=== PATIENT | female | born 1975 | race Caucasian/White ===

== ENCOUNTER 2016-12-12 19:59 | Emergency (ER) | payer MEDICAID ==
--- NOTE | 2016-12-12 20:41 | ED Physician Chart ---
Chief Complaint/HPI - Patient Information Date Seen:: 12/12/16 Time Seen:: 20:30 Chief Complaint:: dysuria History of Present Illness:: 4 days ago patient developed dysuria and urinary frequency every 10-15 minutes. Patient denies back pain or fever. Patient has been taking Azo over-the- counter with some improvement in the symptoms. Allergies:: Allergies Allergy/AdvReac Type Severity Reaction Status Date / Time No Known Allergies Allergy Verified 12/12/16 20:32 Vitals:: Vital Signs - 8 hr 12/12/16 20:10 Temp 97.5 F HR 70 RR 18 BP 118/80 O2 Sat % 97 Historian:: Patient Review:: Nurse's Note Reviewed Review of Systems - Review of Systems General/Constitutional: No fever, No chills Skin: No skin lesions Head: No headache Eyes: No loss of vision ENT: No earache Neck: No neck pain Cardio Vascular: No chest pain Pulmonary: No SOB GI: No nausea, No vomiting G/U: Dysuria, Frequency Endocrine: No polyuria, No polydipsia Psychiatric: No prior psych history Hematopoietic: No bruising, No lymphadenopathy Allergic/Immuno: No urticaria Neurological: No syncope Past Medical History - Past Medical History Past Medical History: No significant medical hx Family History: None Social History: Non Smoker Surgical History: None Psychiatricy History: None Medication: Reviewed Family Medical History - Family Member Mother History Unknown: Yes Physical Exam - Physical Examination General/Constitutional: Well-developed, well-nourished, Alert, No distress Head: Atraumatic Eyes: Lids, conjuctiva normal, PERRL Skin: Nl inspection, No rash, No skin lesions, No ecchymosis ENMT: External ears, nose nl, TM canals nl, Nasal exam nl, Lips, teeth, gums nl , Oropharynx nl, Tonsils nl Neck: No nuchal rigidity Respiratory: Nl effort/Exclusion, Clear to Auscultation Cardio Vascular: RRR GI: No tenderness/rebounding/guarding : No CVA tenderness Neuro/Psych: Alert/oriented, No focal deficits Misc: Normal back ED Septic Shock - . Is Septic Shock (SBP<90, OR Lactate>4 mmol\L) present?: No - <6hrs of presentation: Vital Signs: Vital Signs - 8 hr 12/12/16 20:10 Temp 97.5 F HR 70 RR 18 BP 118/80 O2 Sat % 97 Reassessment (Disposition) - Reassessment Reassessment Condition:: Unchanged - Diagnosis Diagnosis:: Cystitis - Aftercare/Follow up Instructions Aftercare/Follow-Up Instructions:: Refer to Discharge Instructions Medication Prescribed:: Macrobid 100 mg BID for 0ne week - Patient Disposition Discharge/Transfer:: Home Condition at Disposition:: Stable, Unchanged ED Discharge Plan - Patient Disposition Instructions: Urinary Tract Infection, [id number] Additional Instructions: FILL YOUR PRESCRIPTION AND TAKE IT DIRECTED. FOLLOW UP AT YOUR LOCAL MEDICAL CLINIC IF NOT FEELING ANY BETTER.
[2016-12-12 20:57] LABS: URINE BILIRUBIN SMALL (NEGATIVE); URINE BLOOD MODERATE (NEGATIVE); URINE COLOR YELLOW; URINE GLUCOSE (UA) NEGATIVE (NEGATIVE); URINE KETONE NEGATIVE (NEGATIVE); URINE PH 5.5; URINE PROTEIN 30 mg/dL (NEGATIVE); URINE UROBILINOGEN 0.2 E.U./dL (0.2 - 1.0)
[2016-12-12 21:00] LABS: URINE BACTERIA 1+ /hpf (NONE SEEN); URINE CALCIUM OXALATE CRYSTALS FEW /hpf; URINE EPITHELIAL CELLS MODERATE /lpf (FEW); URINE WBC 25-50 /hpf (0-5)
== END 2016-12-12 21:50 | disposition home or self-care (01) ==
LOC: ER 19:59
DX: N30.90 Cystitis, unspecified without hematuria (principal)
CPT/HCPCS: 81001-TC; 81025-TC; 87086-90; Z7502

== ENCOUNTER 2016-12-19 17:09 | Emergency (ER) | payer MEDICAID ==
--- NOTE | 2016-12-19 18:02 | ED Physician Chart ---
Chief Complaint/HPI - Patient Information Date Seen:: 12/19/16 Time Seen:: 17:45 Chief Complaint:: vaginal spotting History of Present Illness:: patient seed here one week ago; cystitis diagnosed and prescribed Macrobid. 5 days ago started vaginal spotting which she has not had before. Stopped the Macrobid because she thought it might be causing the spotting. Allergies:: Allergies Allergy/AdvReac Type Severity Reaction Status Date / Time No Known Allergies Allergy Verified 12/19/16 17:29 Vitals:: Vital Signs - 8 hr 12/19/16 17:10 Temp 97.7 F HR 79 RR 16 BP 135/85 O2 Sat % 97 Historian:: Patient Review:: Nurse's Note Reviewed Review of Systems - Review of Systems General/Constitutional: No fever, No chills Skin: No skin lesions Head: No headache Eyes: No loss of vision ENT: Earache Neck: No neck pain, No swelling Cardio Vascular: No chest pain, No palpitations Pulmonary: No SOB GI: No nausea, No vomiting G/U: No dysuria Electrical Installation Inspector: Abnormal vaginal bleeding Musculoskeletal: No bone or joint pain Endocrine: No polyuria, No polydipsia Psychiatric: No prior psych history Allergic/Immuno: No urticaria, No angioedema Neurological: No syncope, No focal symptoms Past Medical History - Past Medical History Past Medical History: No significant medical hx Family History: None Social History: Smoker, No Alcohol Surgical History: Psychiatricy History: None Medication: None Family Medical History - Family Member Mother History Unknown: Yes Other Medical History: denies family medical history Labs/Radiology/EKG Results - Lab Results Results: Laboratory Results - last 24 hr 12/19/16 12/19/16 17:55 17:55 Urine Source CLEAN C Urine Color YELLOW Urine Clarity CLEAR Urine pH 8.5 Ur Specific [place] 1.015 Urine Protein 30 H Urine Glucose (UA) NEGATIVE Urine Ketones NEGATIVE Urine Blood MODERATE H Urine Nitrate NEGATIVE Urine Bilirubin NEGATIVE Urine Urobilinogen 0.2 Ur Leukocyte Esterase NEGATIVE Urine RBC 10-25 H Urine WBC 0-2 Ur Epithelial Cells FEW Urine Bacteria NONE SEEN Urine Test NEGATIVE Comments:: Laboratory Results - last 24 hr 12/19/16 17:55 Urine Test NEGATIVE Assessment - Assessment General Assessment: doubt that Macrobid is causing the vaginal spotting; recommended following up with [facility] and finishing the macrobid of which she has five left. ED Septic Shock - . Is Septic Shock (SBP<90, OR Lactate>4 mmol\L) present?: No - <6hrs of presentation: Vital Signs: Vital Signs - 8 hr 12/19/16 17:10 Temp 97.7 F HR 79 RR 16 BP 135/85 O2 Sat % 97 Reassessment (Disposition) - Reassessment Reassessment Condition:: Unchanged - Diagnosis Diagnosis:: vaginal spotting; cystitis - Patient Disposition Discharge/Transfer:: Home Condition at Disposition:: Stable, Unchanged ED Discharge Plan - Patient Disposition Instructions: Urinary Tract Infection, [id number] Additional Instructions: TOLERATED.
[2016-12-19 18:52] LABS: URINE BILIRUBIN NEGATIVE (NEGATIVE); URINE BLOOD MODERATE (NEGATIVE); URINE COLOR YELLOW; URINE GLUCOSE (UA) NEGATIVE (NEGATIVE); URINE KETONE NEGATIVE (NEGATIVE)
[2016-12-19 18:53] LABS: URINE BACTERIA NONE SEEN /hpf (NONE SEEN); URINE EPITHELIAL CELLS FEW /lpf (FEW); URINE PH 8.5; URINE PROTEIN 30 mg/dL (NEGATIVE); URINE UROBILINOGEN 0.2 E.U./dL (0.2 - 1.0); URINE WBC 0-2 /hpf (0-5)
== END 2016-12-19 19:12 | disposition home or self-care (01) ==
LOC: ER 17:09
DX: N30.90 Cystitis, unspecified without hematuria (principal); N93.9 Abnormal uterine and vaginal bleeding, unspecified; F17.200 Nicotine dependence, unspecified, uncomplicated; Z98.890 Other specified postprocedural states
CPT/HCPCS: 81001-TC; 81025-TC; Z7502

== ENCOUNTER 2017-06-08 23:22 | Emergency (ER) | payer MEDICAID ==
--- NOTE | 2017-06-09 00:04 | ED Physician Chart ---
Chief Complaint/HPI - Patient Information Date Seen:: 06/08/17 Time Seen:: 23:35 Chief Complaint:: Sorethroat for one day. History of Present Illness:: As above. Taking po without N/V/D. No fever. No cough. No lightheadedness. Pt has not taken any antipyretic or analgesic today. Allergies:: Allergies Allergy/AdvReac Type Severity Reaction Status Date / Time No Known Allergies Allergy Verified 12/19/16 17:29 Vitals:: Vital Signs - 8 hr 06/08/17 23:30 Temp 98.2 F HR 82 RR 18 BP 123/76 O2 Sat % 97 Historian:: Patient Family MD/PCP:: unknown LMP:: 05/30/17 Review:: Nurse's Note Reviewed Review of Systems - Review of Systems General/Constitutional: No fever, No chills, No weight loss, No weakness, No diaphoresis, No edema, No loss of appetite Skin: No skin lesions, No rash, Bruising Head: No headache, No light-headedness Eyes: No loss of vision, No pain ENT: No earache, No nasal drainage, Sore throat Neck: No neck pain, No swelling, No thyromegaly, No stiffness, No mass noted Cardio Vascular: No chest pain, No palpitations, No edema Pulmonary: No SOB, No cough, No wheezing GI: No nausea, No vomiting, No diarrhea, No pain G/U: No dysuria, No frequency, No hematuria Last Inserter: No vaginal discharge, No abnormal vaginal bleed Musculoskeletal: No bone or joint pain, No back pain, No muscle pain Endocrine: No polyuria, No polydipsia Psychiatric: No prior psych history Hematopoietic: No bruising, No lymphadenopathy Allergic/Immuno: No urticaria, No angioedema Neurological: No syncope, No focal symptoms, No weakness, No headache, No confusion Past Medical History - Past Medical History Past Medical History: No significant medical hx Family History: None Social History: Non Smoker, No Alcohol, No Drug Use, Single, Employed, Other ( lives with her daughter.) Employment:: radiology nurse. Surgical History: (in '04) Psychiatricy History: None Medication: None Family Medical History - Family Member Mother History Unknown: Yes Physical Exam - Physical Examination General/Constitutional: Awake, Well-developed, well-nourished, Alert, No distress, GCS 15, Non-toxic appearing, Ambulatory Other Gen/Cons comments:: Breathes comfortably, speaks clearly, and ambulates without difficulty. Head: Atraumatic Eyes: Lids, conjuctiva normal, PERRL, EOMI Skin: Nl inspection, No rash, No skin lesions, No ecchymosis, Well hydrated Other Skin comments:: Mild cervical lymphadenopathy. ENMT: External ears, nose nl, TM canals nl, Nasal exam nl, Lips, teeth, gums nl Other ENMT comments:: Tonsils are erythematous with trace white exudate. L>R. Neck: Nontender, Full ROM w/o pain, No nuchal rigidity, No mass, No stridor Respiratory: Nl effort/Exclusion, Clear to Auscultation, No Wheeze/Rhonchi/Rales Cardio Vascular: RRR, No murmur, gallop, rubs GI: No tenderness/rebounding/guarding, No organomegaly, Normal BS's, Nondistended Other GI comments:: Abdomen is soft. Extremities: No edema Neuro/Psych: Alert/oriented (oriented x 3), Mood normal, Normal gait, No focal deficits ED Septic Shock - . Is Septic Shock (SBP<90, OR Lactate>4 mmol\L) present?: No - <6hrs of presentation: Vital Signs: Vital Signs - 8 hr 06/08/17 23:30 Temp 98.2 F HR 82 RR 18 BP 123/76 O2 Sat % 97 Reassessment (Disposition) - Reassessment Reassessment:: 0010 Pt remains stable. Pt requests to go home now. Aftercare instructions have been given. - Diagnosis Diagnosis:: Early acute tonsillitis, stable. - Aftercare/Follow up Instructions Aftercare/Follow-Up Instructions:: Refer to Discharge Instructions Notes:: Push oral fluid. Tylenol 500 mg po q6h prn pain or fever. May take throat drop such as Cepacol lozenges as directed. Fever instructions given. Oral Hygiene instructions given. F/U with Dr. Cornejo or PCP of pt's choice in 2-3 days for recheck. Return to ER immediately if condition worsens or if any further questions/problems. Medication Prescribed:: Amoxicillin 500 mg tab one tab po q8h for 10 days. D-30 R-0 - Patient Disposition Discharge/Transfer:: Home Time:: 00:15 Condition at Disposition:: Stable ED Discharge Plan - Patient Disposition Admit/Discharge/Transfer: PT DISCHARGED HOME Prescriptions: Amoxicillin [Amoxicillin*] 500 mg PO Q8HR #30 tab Instructions: Tonsillitis, [id number] Additional Instructions: FOLLOW UP WITH YOUR DOCTOR IN 2 -3 DAYS AND TO COME BACK TO ER IF SYMPTOMS WORSEN
== END 2017-06-09 00:55 | disposition home or self-care (01) ==
LOC: ER 23:22
DX: J03.90 Acute tonsillitis, unspecified (principal)
CPT/HCPCS: Z7502

== ENCOUNTER 2018-03-14 14:53 | Emergency (ER) | payer MEDICAID ==
[2018-03-14] MEDS ORDERED: Sodium Chloride 0.9% 2,000 ML IV ONE (16:24)
[2018-03-14] MEDS ORDERED: Morphine Sulfate 4 mg/mL 1mL Syr IV STA (16:27)
[2018-03-14] MEDS ORDERED: Morphine Sulfate 4 mg/mL 1mL Syr ONE (16:40)
[2018-03-14 17:09] LABS: % BASOPHILS 0.4 % (0.0-2.0); EOSINOPHILE ABSOLUTE 0.5 Th/cmm (0.1-0.4); HEMOGLOBIN 10.9 gm/dL (12-16); LYMPHOCYTE ABSOLUTE 2.9 Th/cmm (1.5-3.0)
[2018-03-14 17:17] LABS: % EOSINOPHILS 4.3 % (0.0-5.0); % LYMPHOCYTES 24.3 % (20.0-50.0); % MONOCYTES 7.4 % (2.0-10.0); % NEUTROPHILS 63.6 % (40.0-80.0); HEMATOCRIT 32.2 % (41.0-60); MEAN CELL VOLUME 74.3 fl (81-100); MEAN CORPUSCULAR HEMOGLOBIN 25.1 pg (27.0-31.0); MEAN CORPUSCULAR HGB CONC 33.7 pg (28.0-36.0); MEAN PLATELET VOLUME 7.6 fl; MONOCYTE ABSOLUTE 0.9 Th/cmm (0.3-1.0); NEUTROPHILE ABSOLUTE 7.6 Th/cmm (1.8-8.0); PLATELET COUNT 424 Th/cmm (150-400); RED BLOOD COUNT 4.33 Mil/cmm (3.80-5.10); RED CELL DISTRIBUTION WIDTH 14.4 % (11.5-20.0); WHITE BLOOD COUNT 11.9 Th/cmm (4.8-10.8)
[2018-03-14 17:24] LABS: ALB/GLOB RATIO 1.2 (1.0-1.8); ALBUMIN 3.7 gm/dL (3.7-5.3); ALKALINE PHOSPHATASE 82 U/L (34-104); ANION GAP 9.5 (7.0-16.0); BILIRUBIN,TOTAL 0.5 mg/dL (0.3-1.0); BUN - UREA NITROGEN 12 mg/dL (7-25); CHLORIDE 106 mEq/L (98-107); CREATININE - SERUM 0.7 mg/dL (0.6-1.2); GFR AFRICAN-AMERICAN > 60.0 ml/min (>90); GFR NON AFRICAN-AMERICAN > 60.0 ml/min; GLUCOSE 98 mg/dL (70-105); POTASSIUM SERUM 3.5 mEq/L (3.5-5.1); SGOT 12 U/L (13-39); SGPT/ALT 11 U/L (7-52); SODIUM SERUM 135 mEq/L (136-145); TOTAL PROTEIN,SERUM 6.8 gm/dL (6.0-8.3)
--- NOTE | 2018-03-14 18:36 | ED Physician Chart ---
ED Chief Complaint/HPI - Patient Information History of Present Illness:: THIS 42 YEAR OLD FEMALE PRESENTS WITH 6 DAY HISTORY OF "FLU" THAT BEGAN WITH DIARRHEA AND PROGRESSED THROUGH, NAUSEA, VOMITING, BODY ACHES. DIFFUSE LOWER ABDOMINAL CRAMPING PAINS. THE SEVERITY OF THE PAINS RANGED FROM 0 TO 3. THERE WAS NO RADIATION OF THE PAIN INTO THE BACK. PERSISTENT NAUSEA WAS THE MOST DISTRESSING OF HER SYMPTOMS. HEAD MOVEMENT DID NOT WORSEN HER AYMPTOMS. (SHE HAD 1 PRIOR EPISODE OF VERTIGO WHICH WAS WORSE THAN THIS WEEKS). SHE HAS ALSO HAD HEADS NONE OF WHICH HAD ANY KIND OF THUNDER CLAP ONSET.) Allergies:: Allergies Allergy/AdvReac Type Severity Reaction Status Date / Time No Known Allergies Allergy Verified 03/14/18 15:38 Vitals:: Vital Signs - 8 hr 03/14/18 15:38 Temp 98.1 F HR 97 RR 18 BP 129/84 O2 Sat % 98 Historian:: Patient Review:: Nurse's Note Reviewed, Transfer documents Reviewed ED Past Medical History - Past Medical History Social History: Non Smoker, Employed Surgical History: Family Medical History - Family Member Mother History Unknown: Yes Ethnicity: Living Status: Other Medical History: Asthma ED Physical Exam - Physical Examination General/Constitutional: Well-developed, well-nourished, Alert, Non-toxic appearing, Ambulatory Other Gen/Cons comments:: MILD DISTRESS Head: Atraumatic Eyes: Lids, conjuctiva normal, PERRL, EOMI Other Eyes comments:: NO NYSTAGMUS Skin: Nl inspection, No rash, No skin lesions, No ecchymosis, Well hydrated, No lymphadenopathy ENMT: External ears, nose nl, TM canals nl, Nasal exam nl, Lips, teeth, gums nl , Oropharynx nl Neck: Nontender, Full ROM w/o pain, No JVD, No nuchal rigidity, No bruit, No mass, No stridor Respiratory: Nl effort/Exclusion, Clear to Auscultation (BORDERLINE TACHYCARDIA) , No Wheeze/Rhonchi/Rales Cardio Vascular: RRR, No murmur, gallop, rubs, NL S1 S2, Carotid/Femoral/Distal pulses equal bilaterally Other GI comments:: THE ABDOMEN WAS FLATAND UNDERSTAND IT.THE PATIENT HAD A HORIZONTALC-SECTION SCARIN THE LOWER ABDOMEN THAT WAS WELL HEALED. BOWL SOUNDS WERE NORMAL. ON PALPATION THE ABDOMEN SOFT AND NONTENDER. THERE WAS NO REBOUND OR REGARDING.NO TENDERNESS OVER MCBURNEY'S POINT.THERE WERE NO ABDOMINAL MASSESNO PULSATING MASSES.NO HERNIAS WERE PRESENT. RECTAL EXAM DEFERRED AT MY DISCRETION. : No CVA tenderness Other comments:: PELVIC EXAMINATION WAS DEFERREDAS THERE WAS NO PAIN OR TENDERNESS IN THE PELVIC REGION Extremities: No tenderness or effusion, Full ROM, normal strength in all extremities, No edema, Normal digits & nails Neuro/Psych: Alert/oriented, DTR's symmetric, Normal motor strength, Judgement/ insight normal, Mood normal Other Neuro/Psych comments:: THE PATIENTS GATE WAS STEADY.NEGATIVE ROMBERG SIGN.FINGER-NOSE AND HEEL-RUIZ TESTING WAS NORMAL Misc: Normal back, No paraspinal tenderness ED Labs/Radiology/EKG Results - Lab Results Results: Laboratory Tests 03/14/18 03/14/18 17:00 17:00 WBC 11.9 H RBC 4.33 Hgb 10.9 L Hct 32.2 L MCV 74.3 L MCH 25.1 L MCHC Differential 33.7 RDW 14.4 Plt Count 424 H MPV 7.6 Neutrophils % 63.6 Lymphocytes % 24.3 Monocytes % 7.4 Eosinophils % 4.3 Basophils % 0.4 Sodium 135 L Potassium 3.5 Chloride 106 Carbon Dioxide 23.0 Anion Gap 9.5 BUN 12 Creatinine 0.7 Est GFR ( Amer) > 60.0 Est GFR (Non-Af Amer) > 60.0 BUN/Creatinine Ratio 17.1 Glucose 98 Calcium 8.0 L Total Bilirubin 0.5 AST 12 L ALT 11 Alkaline Phosphatase 82 Total Protein 6.8 Albumin 3.7 Globulin 3.1 Albumin/Globulin Ratio 1.2 Interpretation of lab studies the CBC was essentially unremarkable with a white count of 11.9 mildly elevated and not clinically significant a hemoglobin level of 10.9 again slightly below the normal parameters with a hemoglobin of 10.9. An elevated platelet count of clinical significance. The patient was mildly hyponatremic with a sodium of 135 and all other electrolytes within normal parameters. Renal function was normal liver function tests are either within normal parameters are so close to that that there is no significant abnormality ED Assessment - Assessment General Assessment: CASE SUMMARY: THIS 42-YEAR-OLD FEMALE PRESENTS WITH A ONE-WEEK HISTORY OF WHAT SHE DESCRIBES "FLU-LIKE" SYMPTOMS WHICH WERE MAINLY G.I. THEY CONSISTED OF NAUSEA, VOMITING, DIARRHEA AND MILD ABDOMINAL PAIN.SHE ALSO HAD INTERMITTENT HEADACHES. SHE ALSO HAD INTERMITTENT EPISODES SUBJECTIVE FEVERAND CHILLS.AND HER LABORATORY STUDIES WERE UNREMARKABLE EXCEPT FOR A MILD ELEVATION OF HER WHITE COUNT AND A MODERATE ANEMIA. HER SYMPTOMS WERE ADDRESSEDWITH IV NORMAL SALINE , IV ZOFRAN AND MORPHINE. THE PATIENT WAS ADVISED TO FOLLOW UPWITH HER PRIMARY CARE PHYSICIAN THIS COMING WEEKANDREW RETURN TO THE EMERGENCY DEPARTMENTIF THERE WAS ANY SIGNIFICANT WORSENING OF HER SYMPTOMS.SHE WAS GIVEN A PRESCRIPTION FOR ZOFRAN AND TOLD TO TAKE IT TO EVERY SIX HOURS NEEDED FOR NAUSEA OR VOMITING. MDM DDX: OF NAUSEA, VOMITING AND ABDOMINAL DISCOMFORT: NOT BENIGN POSITIONAL VERTIGO BASED ON THE HISTORY AND PHYSICAL EXAMINATION. NOT SUBARACHNOID HEMORRHAGE BASED ON THE PATIENT'S HISTORYAND PHYSICAL EXAMINATION. NOT HEPATITIS OR RENAL FAILURE BASED ON NORMAL FUNCTION STUDIES OF BOTH. ED Septic Shock - . Is Septic Shock (SBP<90, OR Lactate>4 mmol\\L) present?: No - <6hrs of presentation: Vital Signs: Vital Signs - 8 hr 03/14/18 15:38 Temp 98.1 F HR 97 RR 18 BP 129/84 O2 Sat % 98 ED Reassessment (Disposition) - Reassessment Reassessment Condition:: Improved - Diagnosis Diagnosis:: PAST ENTERITIS, DEHYDRATION - Patient Disposition Discharge/Transfer:: Home ED Discharge Plan - Patient Disposition Admit/Discharge/Transfer: PT DISCHARGED HOME Condition at Disposition: Improved Instructions: Viral Gastroenteritis, [id number], Dehydration, Adult, Easy-to- Read Forms: Work Release Form
== END 2018-03-14 18:45 | disposition home or self-care (01) ==
LOC: ER 14:53
DX: E86.0 Dehydration (principal); K52.9 Noninfective gastroenteritis and colitis, unspecified
CPT/HCPCS: 99285; 96374; 96375; 36415; 85025; 80053; J2405; J7030